=== PATIENT | male | born 1960 ===

== ENCOUNTER → 2020-10-19 15:34 | Outpatient (BNVA) | payer MEDICAID, SELFPAY | PROVIDERS: PCP Nurse Practitioner; Visit Provider Anesthesiology | DX: M51.36 Other intervertebral disc degeneration, lumbar region (principal); M47.816 Spondylosis without myelopathy or radiculopathy, lumbar region; G89.4 Chronic pain syndrome; Z79.891 Long term (current) use of opiate analgesic | CPT/HCPCS: 99202 ==